=== PATIENT | female | born 1950 | race Caucasian/White ===

== ENCOUNTER → 2016-11-04 | Outpatient (CLI) | payer MEDICARE, OTHER ==
[2016-11-04 10:21] LABS: HEMOGLOBIN 13.7 gm/dl (12.3-15.3); RED BLOOD COUNT 4.75 M/UL (4.00-5.10); WHITE BLOOD COUNT 10.3 K/UL (4.5-11.0)
== END ==
LOC: MAMO 09:20
PROVIDERS: Internal Medicine Hematology & Oncology
DX: C50.911 Malignant neoplasm of unspecified site of right female breast (principal); C50.912 Malignant neoplasm of unspecified site of left female breast
CPT/HCPCS: 36415; 80053; 85025; G0204

== ENCOUNTER → 2016-12-27 | Outpatient (CLI) | payer MEDICARE, OTHER | LOC: KOH-I 12:04 | DX: R05 Cough (principal) | CPT/HCPCS: 71020 ==

== ENCOUNTER → 2020-09-08 | Outpatient (CLI) | payer MEDICARE, OTHER ==
[~2020-09-08] MED LIST: ALBUTEROL0.63 MG/3 INH; ALBUTEROL2.5 MG/3 M INH; ARIMIDEX 1 MG TA1 MG GT; BUPROPION HCL150 M1 PO; EZALLOR SPRINKL20 MG GT; FUROSEMIDE20 MG GT; FUROSEMIDE20 MG PO; HUMALOG100 UNIT/2 SQ; HYDROCODONE-AC1 EAC1 PO; KLONOPIN TAB 00.5 MG GT; LANTUS100 UNIT/1 SQ; LEVOTHYROXINE150 MCG GT; LEVOTHYROXINE175 MC1 PO; METOPROLOL TART25 MG PO; NORCO 5-325 TA1 EACH PO; PHENERGAN 25 MG25 M1 PO; PRAVASTATIN SOD40 MG PO; PROTONIX 40 MG40 MG GT; PROTONIX40 MG PO; PROVENTIL HFA6.7 GM INH; PULMICORT0.5 MG/2 M INH; SERTRALINE HCL50 MG GT; STOOL SOFTENER100 MG GT; TOUJEO MAX300 UNIT/1 INJ; TOUJEO MAX300 UNIT/1 SQ; VIIBRYD20 MG PO; ZETIA10 MG PO; ZOFRAN ODT 4 MG4 MG PO
== END ==
LOC: MRI 13:45
DX: I95.1 Orthostatic hypotension (principal); Q04.8 Other specified congenital malformations of brain
CPT/HCPCS: 70551

== ENCOUNTER → 2020-10-30 | Day surgery (SDC) | payer MEDICARE, OTHER | END | disposition home or self-care (01) | LOC: OR 11:02 | DX: R32 Unspecified urinary incontinence (principal); I25.119 Atherosclerotic heart disease of native coronary artery with unspecified angina pectoris; I12.9 Hypertensive chronic kidney disease with stage 1 through stage 4 chronic kidney disease, or unspecified chronic kidney disease; N18.9 Chronic kidney disease, unspecified; N28.1 Cyst of kidney, acquired; F17.219 Nicotine dependence, cigarettes, with unspecified nicotine-induced disorders; I70.8 Atherosclerosis of other arteries; J44.9 Chronic obstructive pulmonary disease, unspecified; E11.9 Type 2 diabetes mellitus without complications; K21.9 Gastro-esophageal reflux disease without esophagitis; Z88.1 Allergy status to other antibiotic agents; Z88.2 Allergy status to sulfonamides; Z79.899 Other long term (current) drug therapy; Z83.3 Family history of diabetes mellitus; Z82.49 Family history of ischemic heart disease and other diseases of the circulatory system; Z85.038 Personal history of other malignant neoplasm of large intestine; Z20.822 Contact with and (suspected) exposure to COVID-19 | CPT/HCPCS: 82962; U0002 ==

== ENCOUNTER → 2021-04-09 | Outpatient (CLI) | payer MEDICARE, OTHER ==
[2021-04-09 18:03] LABS: HEMOGLOBIN 7.8 gm/dl (12.3-15.3); RED BLOOD COUNT 2.51 M/UL (4.00-5.10); WHITE BLOOD COUNT 5.3 K/UL (4.5-11.0)
== END ==
LOC: LBRF 17:28
PROVIDERS: Nurse Practitioner Family
DX: E86.0 Dehydration (principal); D64.9 Anemia, unspecified
CPT/HCPCS: 80053; 85025

== ENCOUNTER → 2021-10-26 | Day surgery (SDC) | payer MEDICARE, OTHER ==
[~2021-10-26] MED LIST changes: +AMITRIPTYLINE H25 MG PO; +ARIMIDEX 1 MG TA1 MG PO; +CRESTOR40 MG PO; +DAILY VALUE1 EACH PO; +FAMOTIDINE20 MG PO; +FLUNISOLIDE25 ML; +HYDROCODON-ACE1 EAC4 PO; +LEXAPRO10 MG PO; +LORATADINE10 MG PO; +LOW DOSE ASPIRI81 MG PO; +LYRICA150 MG PO; +MUCINEX1200 MG PO; +ONDANSETRON ODT4 MG PO; +PREVACID30 MG PO; +PROAIR HFA8.5 GM INH; +SINGULAIR10 MG PO; +SYMBICORT 80-10.2 GM INH; +SYNTHROID150 MCG PO; +TRULANCE3 MG PO; +TYLENOL EXTRA500 MG PO
== END | disposition home or self-care (01) ==
LOC: OR 07:30
DX: Z45.2 Encounter for adjustment and management of vascular access device (principal); F17.210 Nicotine dependence, cigarettes, uncomplicated; J44.9 Chronic obstructive pulmonary disease, unspecified; G47.19 Other hypersomnia; E11.43 Type 2 diabetes mellitus with diabetic autonomic (poly)neuropathy; K31.84 Gastroparesis; K21.9 Gastro-esophageal reflux disease without esophagitis; I12.9 Hypertensive chronic kidney disease with stage 1 through stage 4 chronic kidney disease, or unspecified chronic kidney disease; E78.5 Hyperlipidemia, unspecified; E03.9 Hypothyroidism, unspecified; G47.33 Obstructive sleep apnea (adult) (pediatric); E11.51 Type 2 diabetes mellitus with diabetic peripheral angiopathy without gangrene; Z88.1 Allergy status to other antibiotic agents; Z88.2 Allergy status to sulfonamides; Z79.4 Long term (current) use of insulin; Z79.84 Long term (current) use of oral hypoglycemic drugs; Z79.82 Long term (current) use of aspirin
CPT/HCPCS: 71045; 77001; 82962; C1769; C1788; J0690; J1642; J2704; J3010; J7040; J7120

== ENCOUNTER → 2022-03-25 | Outpatient (CLI) | payer MEDICARE, OTHER | LOC: CT 07:46 | DX: H53.2 Diplopia (principal); H05.20 Unspecified exophthalmos | CPT/HCPCS: 70450; 70480 ==